=== PATIENT | female | born 1960 | race Caucasian/White ===

== ENCOUNTER 2017-02-06 18:53 | Emergency (ER) | payer SELFPAY ==
[~2017-02-06 18:53] MED LIST: DEP250 PO; DEPAKOT500 PO; TRAZODONE300 MG PO
== END 2017-02-06 18:56 | disposition home or self-care (01) ==
LOC: ER 18:53
DX: S76.311A Strain of muscle, fascia and tendon of the posterior muscle group at thigh level, right thigh, initial encounter (principal); F15.959 Other stimulant use, unspecified with stimulant-induced psychotic disorder, unspecified; Z88.2 Allergy status to sulfonamides; Z91.013 Allergy to seafood; Z79.899 Other long term (current) drug therapy; X58.XXXA Exposure to other specified factors, initial encounter
CPT/HCPCS: 99283; A9270-GY